=== PATIENT | male | born 1975 | race Caucasian/White ===

== ENCOUNTER 2016-08-11 19:52 | Emergency (ER) | payer BC ==
[2016-08-11 20:34] VITALS: BP 135/85
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
[2016-08-11] MEDS ORDERED: SILVER SULFADIAZINE 50 APPL JAR TP ONE ×2 (21:58→22:28)
== END 2016-08-11 22:49 | disposition home or self-care (01) ==
LOC: ER 19:52
DX: S50.812A Abrasion of left forearm, initial encounter (principal); V49.40XA Driver injured in collision with unspecified motor vehicles in traffic accident, initial encounter; W22.11XA Striking against or struck by driver side automobile airbag, initial encounter

== ENCOUNTER 2016-12-10 10:47 | Emergency (ER) | payer BC ==
[2016-12-10] MEDS ORDERED: ASPIRIN 81 MG TAB.CHEW PO ONE (10:54)
[2016-12-10 11:13] LABS: Hematocrit 42.5 % (42.0-52.0); Hemoglobin 14.6 gm/dL (13.5-18.0); Mean Cell Volume 96.2 fl (78-100); Mean Corpuscular Hgb Conc 34.4 g/dl (32-36); Mean Platelet Volume 11.7 fl (6.0-9.5); Neutrophil # 2.5 K/mm3 (1.3-6.0); Neutrophil % 45.6 % (42-75.0); Platelet Count 169 K/mm3 (150-450); Red Blood Count 4.42 M/mm3 (4.7-6.0); Red Cell Distribution Width 12.9 % (11.5-14.0); White Blood Count 5.5 K/mm3 (4.0-10.5)
[2016-12-10 11:23] LABS: Prothrombin Time (Patient) 9.9 Seconds (9.4-11.4)
[2016-12-10 11:24] LABS: INR 0.95 INR (0.90-1.10); Partial Thrombolplastin Time 23.6 Seconds (24-32)
--- NOTE | 2016-12-10 11:24 | ERNOTE ---
Chest Pain/Cardiac HPI Date of Service: 12/10/16 Chief Complaint: Chest Pain Time Seen by Provider: 12/10/16 11:11 Source: patient, family, RN notes reviewed Exam Limitations: no limitations Immunizations: IMMUNIZATION HX Immunizations Up to Date Yes History of Influenza Vaccine No Hx Pneumococcal Vaccination No Allergies/Adverse Reactions: Allergies No Known Allergies Allergy (Verified 12/10/16 10:53) Home Medications: HOME MEDICATIONS Nabumetone 750 mg PO BID #60 tab 01/11/16 [Last Taken Unknown] Propranolol HCl [Inderal LA] 80 mg PO BID #60 cap 01/11/16 [Last Taken Unknown] Pain Score #1 Pain Score: 0 Narrative: 41 y/o male ambulatory to the ED for left sided chest pain that began 2 days ago while he was building a deck. The pain has been intermittent and seems to occur only with activity. He currently has no pain. He also reports occasional shortness of breath and numbness/tingling in his left arm. He has not been taking anything for his symptoms. He takes propanolol daily for migraines. He is a pack a day smoker. Date (Duration): 12/08/16 Timing: intermittent Severity/Quality: moderate, sharp Location: left chest Chest Pain Radiation: no radiation Activities at Onset: activity Nitro Today/Relief: no nitro taken today Aspirin Treatment Today: no aspirin today Associated Symptoms: Present: cough, shortness of breath, heartburn. Absent: headache, dizziness, syncope, diaphoresis, fever/chills, palpitations, nausea, vomiting, abdominal pain, back pain Prior Chest Pain/Cardiac Workup: Reports: no prior cardiac workup. Denies: prior chest pain Prior Treatment: Denies: recently seen Review of Systems - Review of Systems Constitutional: Present: fatigue, malaise, decreased activity level. Absent: recent illness, fever EYE: Present: no symptoms reported ENT: Absent: nose congestion, sore throat Respiratory: Present: shortness of breath, cough. Absent: wheezing Cardiology: Present: chest pain. Absent: palpitations, syncope, edema, claudication Gastrointestinal/Abdominal: Absent: nausea, vomiting, abdominal pain Genitourinary: Present: no symptoms reported Musculoskeletal: Absent: back pain, muscle pain, joint pain Skin: Absent: rash, lesions, lumps Neurological: Absent: headache, dizziness/light-headedness Endocrine: Present: no symptoms reported Hematologic/Lymphatic: Present: no symptoms reported Psych: Absent: anxiety, depressed - Patient's Past Medical History Patient History - Medical: Migraines Patient History - Cardiac/Respiratory: No pertinent hx Patient History - Cancer: No Hx of Cancer Patient History - Surgical Procedures: T & A Patient History - Other: None - Social History Living Situations: home Psych History: No pertinent hx Smoking Status: Current every day smoker Cigarettes Packs Per Day: 1 Alcohol Use: none Drug Use: none - Immunizations Immunizations Up to Date: Yes Hx Pneumococcal Vaccination: No History of Influenza Vaccine: No Physical Exam - Physical Exam General Appearance: Present: wd/wn, alert, no apparent distress Head Exam: Present: normal inspection Eye Exam: Normal inspection: bilateral Ears, Nose, Throat: Present: normal ENT inspection, normal pharynx Neck: Present: normal inspection, nontender, supple. Absent: thyromegaly Respiratory: Present: no respiratory distress, normal breath sounds, no accessory muscle use, chest nontender, lungs clear Cardiovascular/Chest: Present: regular rate, rhythm, no murmur, normal peripheral pulses Gastrointestinal/Abdominal: Present: normal bowel sounds, nontender, nondistended, soft Extremity Exam: Present: normal inspection, normal range of motion, no edema. Absent: calf tenderness Neurological Exam: Present: alert, oriented, normal mood/affect, no motor/ sensory deficits Skin Exam: Present: normal color, warm/dry ED Progress - Results and Orders Patient's Lab Results:: I have reviewed the patient's lab results. - Vital Signs Patient's Vital Signs:: I have reviewed the patient's vital signs. Vital Signs: Vital Signs 12/10/16 12/10/16 12/10/16 10:50 10:53 11:05 Temperature 36.1 C L Pulse Rate 67 64 68 Respiratory 13 14 Rate Blood Pressure 138/86 122/81 O2 Sat by Pulse 99 98 Oximetry 12/10/16 11:15 Temperature Pulse Rate 65 Respiratory 13 Rate Blood Pressure 138/84 O2 Sat by Pulse 99 Oximetry - EKG EKG: NSR, unchanged from - 01/02/2015 EKG read: Reviewed by me - Progress/Reassessment Chief Complaint: Chest Pain Progress:: Pain free at discharge Progress Note-Subjective: 12/10/16 12:06 Patient has not had chest pain during ER stay. Labs, EKG and xray are unremarkable for any acute etiology. Departure - Departure Clinical Impression: Acute chest wall pain Disposition: Home Follow Up Needed Condition: Good Instructions: Chest Wall Pain, [id number], Form - Excuse from Work, School, or Physical Activity Additional Instructions: OK to take an anti-inflammatory medication such as ibuprofen or Aleve for pain as directed on label Return to ER for worsening symptoms Follow up with your doctor if fatigue persists Stop smoking Referrals: Francisco Stone DO [Staff Physician] -
[2016-12-10] MEDS ORDERED: ASPIRIN 81 MG TAB.CHEW ONE (11:25)
[2016-12-10 11:30] LABS: ALT 20 U/L (19-67); AST 7 U/L (0-48); Albumin * 3.8 gm/dl (3.4-5.0); Alkaline Phosphatase * 65 U/L (50-170); Anion Gap 14.9 mmol/L (6.8-13.8); BUN/Creatinine Ratio 11.6 (9.0-21.6); Bilirubin, Total 0.3 mg/dL (0.0-1.1); Blood Urea Nitrogen 10 mg/dL (6-23); Ca. Corrected For Albumin 8.6 mg/dL (8.4-10.2); Calcium * 8.8 mg/dL (7.9-10.9); Carbon Dioxide 26.7 mmol/L (24-32.6); Chloride 106 mmol/L (97-106); Glucose * 111 mg/dL (70-110); Potassium 4.6 mmol/L (3.4-4.6); Sodium 143 mmol/L (132-142)
[2016-12-10 11:31] LABS: Troponin I Less than 0.017 ng/ml (0.00-0.10)
[2016-12-10 11:46] LABS: T4 Free * 0.89 ng/dL (0.76-1.46); TSH * 0.704 uIU/mL (0.358-3.74)
[2016-12-10 12:19] VITALS: BP 113/77
== END 2016-12-10 12:18 | disposition home or self-care (01) ==
LOC: ER 10:47
DX: R07.89 Other chest pain (principal); F17.200 Nicotine dependence, unspecified, uncomplicated